=== PATIENT | male | born 1960 | race Caucasian/White ===

== ENCOUNTER 2021-04-14 11:34 | Emergency (ER) | payer BC, SELFPAY ==
[2021-04-14] VITALS (20 sets, daily range): BP systolic 140–169; BP diastolic 76–106; PULSE 90–129; RESP 16–18; TEMP 36.4; O2SAT 95–100
--- NOTE | ~2021-04-14 | XR_ITS ---
EXAMINATION: XR chest 2V 04/14/2021 13:24 INDICATION: Chest palpitations PROCEDURE: 2 view chest COMPARISON: No prior studies for comparison. FINDINGS: The lungs are clear. The cardiomediastinal silhouette is within normal limits. There are no pleural effusions. There is no pneumothorax suspected. IMPRESSION: 1: NO ACUTE CARDIOPULMONARY DISEASE. Reviewed, dictated and finalized at location B.
--- NOTE | 2021-04-14 11:40 | ECG_ITS ---
Measurements Intervals Rector Rate: 126 P: 68 RI: 131 QRS: 59 QRSD: 90 T: 47 QT: 297 QTc: 431 Interpretive Statements SINUS TACHYCARDIA MINIMAL Q WAVES- INFERIOR LEADS ABNORMAL ECG Electronically Signed On 04-14-2021 11:53:31 CDT by Mainor Arroyo D.O.
[2021-04-14] MEDS: SODIUM CHLORIDE 0.9% IV 1,000 ML 999 ML IV CONT (13:32)
--- NOTE | 2021-04-14 13:46 | ED.ANXIETY ---
HPI - Anxiety General Chief Complaint: Anxiety Stated Complaint: high blood pressure/ high heart rate Time Seen by Provider: 04/14/21 13:07 Source: patient History of Present Illness HPI narrative: Patient presents with concerns for anxiety. Reports intermittent anxiety over the past month saw his primary care provider but symptoms were improved with plan for continued monitoring. Patient reports his symptoms appear to be worsening over the past couple days and this morning. He talked to some friends at work and they recommended he be evaluated in the ER. Describes anxiety and palpation in the middle of his chest with sensation of shortness of breath. Reports he is unable to identify any clear aggravating or alleviating symptoms he denies any increase in caffeine or energy drink usage. Denies fever, cough. He does report chest tightness but denies chest pain. Denies any nausea vomiting diarrhea or abdominal pain Related Data Home Medications Medication Instructions Recorded Confirmed atorvastatin 04/14/21 lisinopril 04/14/21 metformin mg 04/14/21 metformin mg 04/14/21 04/14/21 Allergies Allergy/AdvReac Type Severity Reaction Status Date / Time No Known Allergies Allergy Verified 04/14/21 13:30 Review of Systems Review of Systems: CONSTITUTIONAL: Denies fever, chills, or sweats. EYES: Denies visual changes, redness, or discharge. ENT: Denies rhinorrhea, congestion, sore throat, or otalgia. CARDIOVASCULAR: Reports palpitations RESPIRATORY: Reports shortness of breath GASTROINTESTINAL: Denies abdominal pain, nausea, vomiting, or diarrhea. GENITOURINARY: Denies dysuria or hematuria. SKIN: Denies rash or itching. MUSCULOSKELETAL: Denies back pain, joint pain, or myalgia. NEUROLOGIC: Denies headache, numbness, dizziness, or weakness. PSYCHIATRIC: Denies anxiety or depression. All systems reviewed & are unremarkable except as noted in HPI and below PMFSH Past Medical History Medical History (Updated 04/14/21 @ 14:38 by Jose Luis Badillo MD) Diabetes HTN (hypertension) Social History Social History (Updated 04/14/21 @ 13:49 by Jose Luis Badillo MD) Smoking status: Never smoker Alcohol intake: never Substance use: current Substance use type: marijuana Exam Narrative: GENERAL: Well-appearing, well-nourished, and in no acute distress. HEAD: Normocephalic, atraumatic. EYES: PERRLA and EOMI. ENT: Nares clear, no rhinorrhea or epistaxis. Mucous membranes moist. NECK: Supple. No masses. No JVD CHEST: Clear to auscultation. No respiratory distress. No wheezes rales or rhonchi HEART: Regular tachycardia. No murmur heard. Normal peripheral pulses. ABDOMEN: Soft, nontender, nondistended, normal active bowel sounds. EXTREMITIES: Normal range of motion. No edema. SKIN: Warm, dry, no rash. NEURO: No focal deficits. Alert and oriented x3. PSYCH: Normal mood and affect. Course Reevaluation(s) Reevaluation #1: Patient resting comfortably vital signs are improved without intervention. Continue improved with IV fluids Date: 04/14/21 Time: 13:50 Reevaluation #2: Patient resting comfortably results and plan reviewed with patient. Patient comfortable outpatient plan. Date: 04/14/21 Time: 14:35 Vital Signs Vital signs: Vital Signs Temperature 36.4 C L 04/14/21 11:38 Pulse Rate 129 H 04/14/21 11:38 Respiratory Rate 18 04/14/21 11:38 Blood Pressure 157/97 H 04/14/21 11:38 Pulse Oximetry 98 04/14/21 11:38 Temperature 36.4 C L 04/14/21 11:38 Pulse Rate 90 04/14/21 15:02 Respiratory Rate 16 04/14/21 15:02 Blood Pressure 169/84 H 04/14/21 15:02 Pulse Oximetry 98 04/14/21 15:02 MDM - Anxiety MDM Narrative Medical decision making narrative: H&P as above, vs initially with tachycardia, pt looks clinically well, exam reassuring, labs reassuring, img reassuring, additional labs/img considered, symptomatic relief available as needed, on reevaluation pt continues to looks c
[2021-04-14 13:47] LABS: Basophils Absolute Auto 0.1 K/mm3 (0.0-0.1); Basophils Percent Auto 0.4 % (0.2-1.2); Eosinophils Percent Auto 0.2 % (0-4.4); Hematocrit 50.6 % (42.0-52.0); Hemoglobin 17.6 g/dL (14.0-18.0); Immature Granulocyte Absolute 0.03 K/mm3 (0.00-0.031); Immature Granulocyte Percent A 0.2 % (0-0.5); Lymphocytes Absolute Auto 2.94 K/mm3 (0.9-3.2); Lymphocytes Percent Auto 24.1 % (18.3-44.2); Mean Corpuscular HGB Conc 34.8 g/dl (32-36); Mean Corpuscular Hemoglobin 31.5 pg (26-34); Mean Corpuscular Volume 90.5 fl (80-100); Mean Platelet Volume 9.3 fl (7.4-10.4); Monocytes Absolute Auto 0.8 K/mm3 (0.1-0.6); Monocytes Percent Auto 6.3 % (2.6-8.5); Neutrophils Absolute Auto 8.4 K/mm3 (1.3-6.7); Neutrophils Percent Auto 68.8 % (45.5-73.1); Platelet Count Result 312 k/mm3 (150-375); Red Blood Count 5.59 M/mm3 (4.6-6.20); Red Cell Distribution Width 13.2 % (11.5-14.5); White Blood Count 12.2 K/mm3 (4.5-10.0)
[2021-04-14 13:58] LABS: Alanine Aminotransferase 24 U/L (4-50); Albumin Level 5.2 g/dL (3.5-5.1); Alkaline Phosphatase 87 U/L (38-126); Anion Gap 13 mmol/L (8-16); Aspartate Amino Transferase 31 U/L (17-59); Bilirubin,Total 0.7 mg/dL (0.2-1.3); Blood Urea Nitrogen 26 mg/dL (9-20); Calcium 10.3 mg/dL (8.4-10.2); Carbon Dioxide 25 mmol/L (22-30); Chloride 99 mmol/L (98-107); Estimated CRCL calculation 60 ml/min; Estimated Glomerular Filt Rate > 60; Glucose 128 mg/dL (65-110); Potassium 4.5 mmol/L (3.4-5.0); Sodium 137 mmol/L (137-145)
[2021-04-14 14:10] LABS: Troponin I < 0.012 ng/mL (0.000-0.034)
[2021-04-14 14:17] LABS: D Dimer 0.27 ug/mL (<0.48)
[2021-04-14] MEDS: diphenhydrAMINE HCl CAP 25 MG CAPSULE PO (14:58)
== END 2021-04-14 15:13 | disposition home or self-care (01) ==
PROVIDERS: Emergency Provider Emergency Medicine
DX: R00.2 Palpitations (principal); E11.9 Type 2 diabetes mellitus without complications; I10 Essential (primary) hypertension; Z79.84 Long term (current) use of oral hypoglycemic drugs; R00.0 Tachycardia, unspecified
CPT/HCPCS: 36415; 71046; 80053; 84443; 84484; 85025; 85380; 93005; 96360; 99284; A9270; J7030